=== PATIENT | male | born 1950 | race Asian ===

== ENCOUNTER 2017-01-15 17:49 | Outpatient (CLI) | payer BC | END 2017-01-15 18:05 | disposition short-term general hospital (02) | LOC: AMB 17:49 | DX: R11.2 Nausea with vomiting, unspecified (principal); R42 Dizziness and giddiness; R53.1 Weakness | CPT/HCPCS: A0425; A0427 ==

== ENCOUNTER 2017-01-17 18:07 | Emergency (ER) | payer BC ==
[~2017-01-17] VITALS: Ht 175.3 cm; Wt 140.2 kg
[2017-01-17 18:52] LABS: PLATELET COUNT 267 K/uL (142-355)
[2017-01-17 19:04] LABS: POTASSIUM 3.3 mmol/L (3.6-5.2); SODIUM 139 mmol/L (136-145)
[2017-01-17 19:54] VITALS: BP 140/78; TEMP 98
== END 2017-01-17 19:55 | disposition home or self-care (01) ==
LOC: ED 18:07
DX: R42 Dizziness and giddiness (principal); R11.2 Nausea with vomiting, unspecified
CPT/HCPCS: 80053; 85027; 86318; 96372; 99283; J2405

== ENCOUNTER 2019-10-04 09:10 | Emergency (ER) | payer BC ==
[~2019-10-04] VITALS: Ht 175.3 cm; Wt 149.7 kg
[2019-10-04 09:15] VITALS: TEMP 97.9
[2019-10-04 09:42] LABS: POTASSIUM 3.4 mmol/L (3.6-5.2)
[2019-10-04 09:47] LABS: PLATELET COUNT 264 K/uL (142-355)
[2019-10-04 13:20] VITALS: BP 125/92
== END 2019-10-04 13:20 | disposition home or self-care (01) ==
LOC: ED 09:10
PROVIDERS: Student in an Organized Health Care Education/Training Program
DX: N20.1 Calculus of ureter (principal); N13.4 Hydroureter; Z87.442 Personal history of urinary calculi
CPT/HCPCS: 80053; 81000; 83690; 83735; 85027; 96360; 96375; 99284; J1885; J2270; J2405; J2765

== ENCOUNTER 2019-11-22 15:03 | Outpatient (CLI) | payer BC | END 2019-11-22 19:17 | disposition home or self-care (01) | LOC: RAD 15:03 | DX: M54.16 Radiculopathy, lumbar region (principal) ==

== ENCOUNTER 2022-10-05 11:29 | Emergency (ER) | payer OTHER ==
[~2022-10-05] VITALS: Ht 175.3 cm; Wt 127.0 kg
[2022-10-05 11:32] VITALS: TEMP 97.2
[2022-10-05 12:58] LABS: PLATELET COUNT 226 K/uL (142-355)
[2022-10-05 13:26] LABS: POTASSIUM 3.8 mmol/L (3.6-5.2)
[2022-10-05 16:45] VITALS: BP 149/81
== END 2022-10-05 16:45 | disposition home or self-care (01) ==
LOC: ED 11:29
PROVIDERS: Family Medicine
DX: R42 Dizziness and giddiness (principal); I10 Essential (primary) hypertension; N20.0 Calculus of kidney; M47.817 Spondylosis without myelopathy or radiculopathy, lumbosacral region
CPT/HCPCS: 36415; 80053; 81002; 82550; 84484; 85027; 85610; 85730; 96372; 99283; J1885

== ENCOUNTER 2022-11-26 11:21 | Outpatient (CLI) | payer OTHER | END 2022-11-26 20:32 | disposition home or self-care (01) | LOC: RESP 11:21 | PROVIDERS: ATTEND Internal Medicine Cardiovascular Disease | DX: R42 Dizziness and giddiness (principal); Z79.899 Other long term (current) drug therapy ==